=== PATIENT | male | born 1960 | race Caucasian/White ===

== ENCOUNTER 2024-10-11 06:42 | Outpatient (RCR) | payer BC, SELFPAY | END 2024-10-11 23:59 | disposition home or self-care (01) | LOC: RPT 06:42 | PROVIDERS: ATTENDING PHYSICIAN Internal Medicine | DX: M54.16 Radiculopathy, lumbar region (principal); M54.30 Sciatica, unspecified side; Z73.6 Limitation of activities due to disability; R26.89 Other abnormalities of gait and mobility | CPT/HCPCS: 97110; 97162; 97535 ==